=== PATIENT | male | born 1945 | race Caucasian/White ===

== ENCOUNTER 2016-08-09 07:18 | Observation (INO) | payer OTHER ==
[~2016-08-09] VITALS: Ht 171.4 cm; Wt 86.2 kg
--- NOTE | 2016-08-09 07:27 | NUR ---
PT BIBA FOR ABD PAIN. PT REPORTING HE WOKE UP THIS MORNING WITH R TO L RADIATING ABD PAIN, DENIES NAUSEA, VOMITING, CHEST PAIN, SOB. ABD ONLY TENDE TO DEEP PALPATION ON R SIDE, NON RADIATING WITH PALPATION. DENIES ANY URINARY OR BOWEL S/S.
--- NOTE | 2016-08-09 07:29 | NUR ---
PT REPORTING HE TOOK NO HOME MEDS TODAY
--- NOTE | 2016-08-09 07:34 | ED GI/GU/ABDOMINAL COMPLAINT ---
History of Present Illness General Chief Complaint: Abdominal Pain/Flank Pain Stated Complaint: BIBA, ABD PAIN Source: patient, family, old records, EMS Exam Limitations: no limitations Vital Signs & Intake/Output Vital Signs & Intake/Output Vital Signs Date Time Temp Pulse Resp B/P B/P Pulse O2 O2 Flow FiO2 Mean Ox Delivery Rate 08/09 1822 99.2 63 22 125/60 99 Nasal 2.0L Cannula 08/09 1742 99.2 74 118/69 08/09 1716 100.2 08/09 1642 102.1 08/09 1621 101.5 88 20 105/55 98 Nasal 2.0L Cannula 08/09 1549 102.7 90 20 103/57 96 Nasal 2.0L Cannula 08/09 1509 4.0 08/09 1509 102.5 88 18 120/65 100 Room Air 08/09 1321 99.8 70 20 151/72 96 Room Air 08/09 1032 98.0 68 20 165/83 94 Room Air 08/09 1003 97.0 70 159/71 08/09 0922 98.0 68 18 186/63 100 08/09 0825 99.0 64 176/78 08/09 0756 98.2 55 18 172/74 100 Room Air 08/09 0727 99 Room Air Allergies Coded Allergies: NO KNOWN ALLERGIES (08/09/16) Reconcile Medications Amoxicillin/Potassium Clav (Augmentin 875-125 Tablet) 875 MG-125 MG TABLET 1 TAB PO BID acute cholecystitis take with food Aspirin (Ecotrin*) 81 MG TABLET.DR 1 TAB PO DAILY antiplatelet (Reported) Atorvastatin Calcium (Lipitor) 80 MG TABLET 1 TAB PO DAILY hyperlipidemia ( Reported) Dexlansoprazole (Dexilant) 60 MG CAP.DR.BP 1 CAP PO DAILY GERD (Reported) Docusate Sodium (Colace) 100 MG CAPSULE 1 CAP PO BID PRN CONSTIPATION stool softener available over the counter Ezetimibe (Zetia) 10 MG TABLET 1 TAB PO DAILY hyperlipidemia (Reported) Levothyroxine Sodium (Synthroid) 50 MCG TABLET 1 TAB PO DAILY hypothyroidism (Reported) Olmesartan Medoxomil (Benicar) 20 MG TABLET 1 TAB PO DAILY GERD (Reported) Oxycodone HCl/Acetaminophen (Percocet 5-325 MG Tablet) 5 MG-325 MG TABLET 1-2 TAB PO Q4-6 PRN PRN pain control Triage Nurses Notes Reviewed? yes Onset: Abrupt Duration: hour(s): (FEW) Timing: multiple episodes today Severity Numbers: 10 Location: epigastric, left upper quadrant, right upper quadrant Radiation: no radiation Activities at Onset: sleep Associated Symptoms: abdominal pain, NAUSEA HPI: This is a 71-year-old male history of hypertension, coronary disease, acid reflux who presents by EMS with a chief complaint of sudden onset of crampy abdominal pain which woke him up from sleep. Patient states the pain goes from the right side of his abdomen to the left. Positive associated nausea but no vomiting. No difficulty with bowel or bladder. He went to add feeling fine last night. Yesterday he had hotdogs for dinner. Patient states the pain is the [place]. He is unable to rate it. No radiation of the pain to the back. She states this is dissimilar to his previous GERD. Admits to couple of alcoholic beverages last night no history of hepatitis gallbladder disease. History of colonoscopies by Dr. Neville Richmond which were normal according to the patient. Past History Travel History Traveled to [place] past 21 day No Medical History Any Pertinent Medical History? see below for history Cardiovascular: hypertension, hyperlipidemia, mitral regurgitation Gastrointestinal: GERD Surgical History Surgical History: CARDIAC STENT, CORRECTIVE SURGERY Psychosocial History What is your primary language [place] ETOH Use: occasional use Family History Hx Contributory? No Review of Systems Review of Systems Constitutional: Reports: diaphoresis. Denies: chills, fever. EENTM: Reports: no symptoms. Respiratory: Denies: cough, short of breath. Cardiovascular: Denies: chest pain, palpitations. GI: Reports: abdominal pain, nausea. Denies: diarrhea, vomiting. Genitourinary: Denies: discharge, dysuria. Musculoskeletal: Reports: no symptoms. Skin: Reports: no symptoms. Neurological/Psychological: Reports: no symptoms. Hematologic/Endocrine: Denies: bruising, bleeding, polyuria, polydipsia. Immunologic/Allergic: Denies: splenectomy. All Other Systems: Reviewed and Negative Physical Exam Physical Exam General Appearance: well developed/nourished, alert, awake, anxious, mild distress Head: atraumatic, normal appearance Eyes: Bilateral: normal appearance, PERRL, EOMI. Ears, Nose, Throat, Mouth: hearing grossly normal, moist mucous membrane Neck: normal inspection, supple, full range of motion Respiratory: normal breath sounds, chest non-tender, no respiratory distress Cardiovascular: regular rate/rhythm Peripheral Pulses: 2+ radial (R), 2+ radial (L) Gastrointestinal: normal bowel sounds, soft, tenderness (EPIGASTRIC, RUQ) Back: normal inspection, normal range of motion Extremities: normal range of motion Neurologic/Psych: no motor/sensory deficits, awake, alert, oriented x 3 Core Measures ACS in differential dx? No Severe Sepsis Present: No Septic Shock Present: No Progress Differential Diagnosis: AAA, AMI, biliary colic, cholecystitis, diverticulitis, gastritis, hepatitis, pancreatitis, PUD/GERD, perforated viscous, SBO Plan of Care: Orders Procedure Date/time Status Clear Liquid Diet 08/10 B Active CBC WITHOUT DIFFERENTIAL 08/10 06 Active BASIC ELECTROLYTES PLUS BUN&CR 08/10 0600 Active Nothing by Mouth 08/09 D Complete Patient Data 08/09 2047 Active Code Status 08/09 204 Active PATHOLOGY SPECIMEN 08/09 1917 Active Intake & Output 08/09 0756 Active URINALYSIS 08/09 0732 Complete TROPONIN LEVEL 08/09 0732 Complete PARTIAL THROMBOPLASTIN TIME 08/09 0732 Complete PROTHROMBIN TIME 08/09 0732 Complete LIPASE 08/09 0732 Complete LACTIC ACID 08/09 0732 Complete COMPREHENSIVE METABOLIC PANEL 08/09 0732 Complete CBC WITHOUT DIFFERENTIAL 08/09 0732 Complete EKG 08/[address] in observation 08/09 UNK Active VTE Mechanical Prophylaxis 08/09 UNK Active Vital Signs 08/09 UNK Active Intake & Output 08/09 UNK Active Current Medications Sig/Millicent Start time Last Medication Dose Stop Time Status Admin Atorvastatin Calcium 80 MG 1700 08/10 1700 AC (Lipitor) Aspirin Buffered 81 MG DAILY 08/10 1000 AC (Ecotrin) Ezetimibe 10 MG DAILY 08/10 1000 AC (Zetia) Losartan Potassium 50 MG DAILY 08/10 1000 AC (Cozaar) Levothyroxine Sodium 0.05 MG DAILY AC 08/10 0700 AC (Synthroid) Ampicillin Sodium/ 3,000 MG Q6H 08/10 0100 r Sulbactam Sodium (Unasyn) Sodium Chloride 100 ML (Normal Saline 0.9%) Famotidine 20 MG BID 08/09 2200 AC (Pepcid) Heparin Sodium 5,000 UNIT Q8 08/09 2200 AC (Porcine) Acetaminophen 1,000 MG Q6H 08/09 2099 AC (Ofirmev) 08/10 1514 N/A 1 UNIT (No Carrier) Ketorolac 15 MG Q6-PRN PRN 08/09 2099 AC Tromethamine (Toradol) Morphine Sulfate 2 MG Q2-3 HRS NEEDED.. 08/09 2099 AC (Morphine) Oxycodone HCl 5 MG Q4-6 PRN PRN 08/09 2099 AC (Roxicodone) Oxycodone HCl 10 MG Q4-6 PRN PRN 08/09 2099 AC (Roxicodone) Potassium Chloride 20 MEQ Q8H 08/09 2099 AC (KCl 20MEQ in D5W NS 1000ML) Dextrose/Sodium 1,000 ML Chloride (D5-Normal Saline) Laboratory Tests 08/09/16 1101: Urine Color YEL, Urine Clarity CLEAR, Urine pH 6.5, Ur Specific [place] 1.010, Urine Protein TRACE H, Urine Ketones NEG, Urine Nitrite NEG, Urine Bilirubin NEG, Urine Urobilinogen 1.0, Ur Leukocyte Esterase NEG, Ur Microscopic SEDIMENT EXAMINED, Urine RBC FEW H, Urine WBC 1-3 H, Ur Epithelial Cells RARE, Urine Bacteria RARE H, Urine Mucus RARE, Urine Hemoglobin TRACE-INTACT H, Urine Glucose NEG 08/09/16 1032: Lactic Acid Cancelled 08/09/16 0750: Anion Gap 10, Estimated GFR > 60, BUN/Creatinine Ratio 17.8, Glucose 123 H, Lactic Acid 1.6, Calcium 9.3, Total Bilirubin 0.8, AST 18, ALT 32, Alkaline Phosphatase 80, Troponin I < 0.01, Total Protein 6.3, Albumin 4.0, Globulin 2.3, Albumin/Globulin Ratio 1.7, Lipase 97, PT 12.4, INR 1.18 H, APTT 27, CBC w Diff NO MAN DIFF REQ, RBC 4.52 L, MCV 94.4 H, MCH 32.0 H, RDW 13.9, MPV 7.3 L, Gran % 81.3 H, Lymphocytes % 11.0 L, Monocytes % 6.8, Eosinophils % 0.5, Basophils % 0.4, Absolute Granulocytes 6.6 H, Absolute Lymphocytes 0.9 L, Absolute Monocytes 0.6, Absolute Eosinophils 0, Absolute Basophils 0, PUBS MCHC 33.8 zofran, morphine, labs, ua ordered. still in pain and nauseated. dilaudid, phenergen ordered. repeat dilaudid ordered for pain. 08/09/2016 11:02:28 AM Patient still unable to give urine. He states he feels it may be medications. Patient is currently refusing straight cath. Patient and informed regarding CT scan read delay. [facility] called, reading department call. (SHAYNA CR,ROSARIO) Diagnostic Imaging: Viewed by Me: CT Scan, Ultrasound. Discussed w/RAD: CT Scan, Ultrasound. Radiology Impression: PATIENT: ALEXI SAGASTUME PRESENT AGE: 71 PATIENT ACCOUNT NO: [id number] : 46 LOCATION: [facility] ORDERING PHYSICIAN: ROSARIO CORRAL MD SERVICE DATE: 08/09/16 EXAM TYPE: US - US-LIMITED ABDOMEN EXAMINATION: US ABDOMEN LIMITED CLINICAL INFORMATION: Right upper quadrant pain and nausea.. COMPARISON: Previous CT from of the abdomen and pelvis from earlier the same day TECHNIQUE: Real-time imaging of the right upper quadrant abdominal viscera. FINDINGS: PANCREAS: Not well visualized due to bowel gas LIVER: Normal. The liver demonstrates normal size, contour and echogenicity. No focal lesion or intrahepatic biliary duct dilatation. GALLBLADDER: There are gallstones in the gallbladder. The gallbladder wall is thickened. The gallbladder wall measures 0.5 cm. There is trace pericholecystic fluid. The technologist reports the patient is tender over the gallbladder. Ultrasound appearance is suggestive of acute cholecystitis. COMMON BILE DUCT: Normal in caliber measuring 0.6 cm in diameter. RIGHT KIDNEY: Normal. No hydronephrosis. No renal calculi or focal parenchymal lesions. The kidney measures 10.5 cm in maximum dimension. IMPRESSION: Gallstones, thickened gallbladder wall and trace pericholecystic fluid. Ultrasound appearance is suggestive of acute cholecystitis. DICTATED BY: RICHARD MANCERA MD DATE/TIME DICTATED:08/09/161206 DEPARTMENT STORE GENERAL MANAGER:CRISTEL DATE/TIME TRANSCRIBED:1206 CONFIDENTIAL, DO NOT COPY WITHOUT APPROPRIATE AUTHORIZATION. < Electronically signed in Other Vendor System> SIGNED BY: RICHARD MANCERA MD 08/09/16 1213, PATIENT: ALEXI SAGASTUME PRESENT AGE: 71 PATIENT ACCOUNT NO: [id number] : 46 LOCATION: [facility] ORDERING PHYSICIAN: ROSARIO CORRAL MD SERVICE DATE: 08/09/16 EXAM TYPE: CAT - CT ABD & PELVIS W IV CONTRAST EXAMINATION: CT ABDOMEN AND PELVIS WITH CONTRAST CLINICAL INFORMATION: Right-sided abdominal pain. COMPARISON: None TECHNIQUE: Multidetector volumetric imaging was performed of the abdomen and pelvis before and after the IV administration of 95 mL of Optiray 320 intravenous contrast. Sagittal and coronal reformatted images were obtained on the technologist's workstation. DLP: 407.66 mGy-cm FINDINGS: LUNG BASES: The visualized lung bases are unremarkable. LIVER, GALLBLADDER, AND BILIARY TREE: The liver is normal in size, shape, and attenuation. No focal hepatic lesion or biliary ductal dilatation is present. There is increased attenuation seen dependently in the gallbladder probably representing gallstones. PANCREAS: Unremarkable. SPLEEN: Unremarkable. ADRENAL GLANDS: Unremarkable. KIDNEYS AND URETERS: The kidneys are normal in size, shape, and attenuation. No hydronephrosis, hydroureter, or calculi seen. No perinephric stranding. BLADDER: Unremarkable. GASTROINTESTINAL TRACT: There is a hiatal hernia. There is evidence of diverticulosis. No evidence of diverticulitis is seen. Small and large bowel are otherwise normal. The appendix is normal. ABDOMINAL WALL: There is a small umbilical hernia containing fat. LYMPH NODES: There are no enlarged lymph nodes. There is no ascites. VASCULAR: There is evidence of atherosclerotic disease. No aneurysm is seen. PELVIC VISCERA: The prostate gland is slightly enlarged measuring 4 x 5 cm. OSSEOUS STRUCTURES: There are degenerative changes of the spine. IMPRESSION: Diverticulosis. No evidence of diverticulitis. Probable gallstones. Hiatal hernia. Slightly enlarged prostate gland. DICTATED BY: RICHARD MANCERA MD DATE/ TIME DICTATED:08/09/16941 DEPARTMENT STORE GENERAL MANAGER:CRISTEL DATE/TIME TRANSCRIBED: 08/09/16941 CONFIDENTIAL, DO NOT COPY WITHOUT APPROPRIATE AUTHORIZATION. < Electronically signed in Other Vendor System> SIGNED BY: RICHARD MANCERA MD 08/09/16 1109 Initial ED EKG: NSR, nonspecific ST T wave chg Departure Departure Time of Disposition: 1819 Disposition: STILL A PATIENT Condition: Stable Clinical Impression Primary Impression: Acute cholecystitis Referrals: BERTHA MORALESA (PCP/Family) Departure Forms: Customer Survey General Discharge Information Prescriptions: Current Visit Scripts Oxycodone HCl/Acetaminophen (Percocet 5-325 MG Tablet) 1-2 TAB PO Q4-6 PRN PRN pain control #36 TAB Amoxicillin/Potassium Clav (Augmentin 875-125 Tablet) 1 TAB PO BID #14 TAB take with food Docusate Sodium (Colace) 1 CAP PO BID PRN CONSTIPATION 10 Days stool softener available over the counter OR/GI Note Spoke With: JT CR,HAMILTON Brooks. ED Treatment Decision: ALEXI SAGASTUME requires urgent operative management or an emergent procedure that cannot be performed in the Emergency Room setting. Transport To: [facility] Critical Care Note Critical Care Note Critical Care Time: 30-74 min
[2016-08-09 08:10] LABS: ABSOLUTE BASOPHIL COUNT 0 /CUMM (0.0-0.2); ABSOLUTE EOSINOPHIL COUNT 0 /CUMM (0.0-0.7); ABSOLUTE LYMPH COUNT 0.9 /CUMM (1.2-3.4); ABSOLUTE MONOCYTE COUNT 0.6 /CUMM (0.10-0.60)
--- NOTE | 2016-08-09 08:10 | NUR ---
PT MEDICATED PER EMAR, INFORMED OF POC.
--- NOTE | 2016-08-09 08:25 | NUR ---
PT REPORTING NO IMPROVEMENT WITH MORPHINE OR ZOFRAN, MEDICATED WITH DILAUDID AND PHENERGAN, WILL RE ASSESS FOR PAIN CONTROL
[2016-08-09 08:28] LABS: ABSOLUTE GRANULOCYTE CT 6.6 /CUMM (1.4-6.5); BASOPHIL % 0.4 % (0.0-2.0); EOSINOPHIL % 0.5 % (0-5); GRANULOCYTE % 81.3 % (42.2-75.2); HEMATOCRIT 42.7 % (42-52); MEAN CORPUSCULAR HGB CONC 33.8 G/DL (33.0-37.0); MEAN CORPUSCULAR VOLUME 94.4 FL (80.0-94.0); MEAN PLATELET VOLUME 7.3 FL (7.4-10.4); PLATELET COUNT 224 /CUMM (130-400); RBC DISTRIBUTION WIDTH 13.9 % (11.5-14.5); RED BLOOD CELL CT 4.52 /CUMM (4.70-6.10); WHITE BLOOD CELL COUNT 8.2 /CUMM (4.8-10.8)
[2016-08-09 08:41] LABS: PT 12.4 SEC (9.4-12.5); PTT 27 SEC (25-37)
--- NOTE | 2016-08-09 09:33 | NUR ---
PT REQUESTING MORE DILAUDID, MEDICATED PER EMAR, PT TO CT SCAN AT THIS TIME.
--- NOTE | 2016-08-09 10:02 | NUR ---
PT NOTED TO BE SLEEPING QUIETLY, EASILY AROUSABLE, AT BEDSIDE, NOTED TO BE WRITING DOWN ALL INTERACTIONS WITH STAFF ON IPHONE. EDUCATED ON MEDICATIONS AND INDICATIONS FOR WHY THEY ARE BEING GIVEN.
--- NOTE | 2016-08-09 10:04 | NUR ---
PT REMINDED AGAIN OF THE NEED FOR A URINE SAMPLE
--- NOTE | 2016-08-09 10:43 | NUR ---
PT NOTED TO AGAIN BE SLEEPING QUIETLY, ENCOURAGED TO GIVE URINE SAMPLE, STATING SHE WILL ASSIST . PT REMINDED NOT TO STAND DUE TO LARGE AMOUNT OF NARCOTICS ADMINISTERED. PT AND EXPRESS UNDERSTANDING
--- NOTE | 2016-08-09 11:03 | NUR ---
URINE TRIO SENT
--- NOTE | 2016-08-09 11:09 | CT SCAN REPORT ---
EXAMINATION: CT ABDOMEN AND PELVIS WITH CONTRAST CLINICAL INFORMATION: Right-sided abdominal pain. COMPARISON: None TECHNIQUE: Multidetector volumetric imaging was performed of the abdomen and pelvis before and after the IV administration of 95 mL of Optiray 320 intravenous contrast. Sagittal and coronal reformatted images were obtained on the technologist's workstation. DLP: 407.66 mGy-cm FINDINGS: LUNG BASES: The visualized lung bases are unremarkable. LIVER, GALLBLADDER, AND BILIARY TREE: The liver is normal in size, shape, and attenuation. No focal hepatic lesion or biliary ductal dilatation is present. There is increased attenuation seen dependently in the gallbladder probably representing gallstones. PANCREAS: Unremarkable. SPLEEN: Unremarkable. ADRENAL GLANDS: Unremarkable. KIDNEYS AND URETERS: The kidneys are normal in size, shape, and attenuation. No hydronephrosis, hydroureter, or calculi seen. No perinephric stranding. BLADDER: Unremarkable. GASTROINTESTINAL TRACT: There is a hiatal hernia. There is evidence of diverticulosis. No evidence of diverticulitis is seen. Small and large bowel are otherwise normal. The appendix is normal. ABDOMINAL WALL: There is a small umbilical hernia containing fat. LYMPH NODES: There are no enlarged lymph nodes. There is no ascites. VASCULAR: There is evidence of atherosclerotic disease. No aneurysm is seen. PELVIC VISCERA: The prostate gland is slightly enlarged measuring 4 x 5 cm. OSSEOUS STRUCTURES: There are degenerative changes of the spine. IMPRESSION: Diverticulosis. No evidence of diverticulitis. Probable gallstones. Hiatal hernia. Slightly enlarged prostate gland.
--- NOTE | 2016-08-09 12:13 | ULTRASOUND REPORT ---
EXAMINATION: US ABDOMEN LIMITED CLINICAL INFORMATION: Right upper quadrant pain and nausea.. COMPARISON: Previous CT from of the abdomen and pelvis from earlier the same day TECHNIQUE: Real-time imaging of the right upper quadrant abdominal viscera. FINDINGS: PANCREAS: Not well visualized due to bowel gas LIVER: Normal. The liver demonstrates normal size, contour and echogenicity. No focal lesion or intrahepatic biliary duct dilatation. GALLBLADDER: There are gallstones in the gallbladder. The gallbladder wall is thickened. The gallbladder wall measures 0.5 cm. There is trace pericholecystic fluid. The technologist reports the patient is tender over the gallbladder. Ultrasound appearance is suggestive of acute cholecystitis. COMMON BILE DUCT: Normal in caliber measuring 0.6 cm in diameter. RIGHT KIDNEY: Normal. No hydronephrosis. No renal calculi or focal parenchymal lesions. The kidney measures 10.5 cm in maximum dimension. IMPRESSION: Gallstones, thickened gallbladder wall and trace pericholecystic fluid. Ultrasound appearance is suggestive of acute cholecystitis.
--- NOTE | 2016-08-09 13:22 | NUR ---
PH IV REMOVED, NEW LINE STARTED IN RAC, MEDICATED WITH UNASYN PER EMAR, PT STATING HE DOES NOT NEED ADDTL PAIN MEDS RIGHT NOW, AWAITING SURGICAL PA
--- NOTE | 2016-08-09 14:16 | History & Physical Pre-Op ---
General Information and HPI MD Statement: I have seen and personally examined ALEXI SAGASTUME and documented this H&P. The patient is a 71 year old M who presented with a patient stated chief complaint of [abdominal pain]. History of Present Illness: This 71 year old white male with history of hypothyroidism, GERD, hyperlipidemia , cad s/p cardiac stent (2004), presents with acute abdominal pain that woke him from sleep at 2 am. He denies any prior episodes of abdominal pain like this. He reports his pain has been constant, improved with pain medication given in the ED. He denies nausea and vomiting. No fevers, chills, or sweats. 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 Home Who Do You Live With? spouse Smoking Status: Former Smoker ETOH Use: occasional use Illicit Drug Use: denies illicit drug use Employment History Employment: Employed Review of Systems Review of Systems: admits: abdominal pain denies: nausea/vomiting, shortness of breath, chest pains, dysuria Exam & Diagnostic Data Last 24 Hrs of Vital Signs/I&O Vital Signs Date Time Temp Pulse Resp B/P B/P Pulse O2 O2 Flow FiO2 Mean Ox Delivery Rate 08/09 1321 97.8 70 20 151/72 96 Room Air 08/09 1032 98.0 68 20 165/83 94 Room Air 08/09 1003 97.0 70 159/71 08/09 0922 98.0 68 18 186/63 100 08/09 0825 99.0 64 176/78 08/09 0756 98.2 55 18 172/74 100 Room Air 08/09 0727 99 Room Air Intake & Output 08/09 1600 08/09 0800 08/09 0000 Intake Total 1000 Output Total Balance 1000 Intake, IV 1000 Patient 190 lb Weight Weight Reported by Patient Measurement Method Physical Exam: General - alert & oriented x 3. uncomfortable. no acute distress. Skin - warm, dry, and smooth. no rashes noted. Lungs - clear bilaterally. no w/r/r. Cardiac - s1s2. reg. Abdomen - soft. +campos's sign. right upper quadrant tenderness. Extremities - warm bilaterally. no c/c/e. calves soft and nontender b/l. pulses equal throughout. Neuro - speech smooth and coordinated. no focal deficits. Last 24 Hrs of Labs/Inocencio: Laboratory Tests 08/09/16 1101: Urine Color YEL, Urine Clarity CLEAR, Urine pH 6.5, Ur Specific [place] 1.010, Urine Protein TRACE H, Urine Ketones NEG, Urine Nitrite NEG, Urine Bilirubin NEG, Urine Urobilinogen 1.0, Ur Leukocyte Esterase NEG, Ur Microscopic SEDIMENT EXAMINED, Urine RBC FEW H, Urine WBC 1-3 H, Ur Epithelial Cells RARE, Urine Bacteria RARE H, Urine Mucus RARE, Urine Hemoglobin TRACE-INTACT H, Urine Glucose NEG 08/09/16 1032: Lactic Acid Cancelled 08/09/16 0750: Anion Gap 10, Estimated GFR > 60, BUN/Creatinine Ratio 17.8, Glucose 123 H, Lactic Acid 1.6, Calcium 9.3, Total Bilirubin 0.8, AST 18, ALT 32, Alkaline Phosphatase 80, Troponin I < 0.01, Total Protein 6.3, Albumin 4.0, Globulin 2.3, Albumin/Globulin Ratio 1.7, Lipase 97, PT 12.4, INR 1.18 H, APTT 27, CBC w Diff NO MAN DIFF REQ, RBC 4.52 L, MCV 94.4 H, MCH 32.0 H, RDW 13.9, MPV 7.3 L, Gran % 81.3 H, Lymphocytes % 11.0 L, Monocytes % 6.8, Eosinophils % 0.5, Basophils % 0.4, Absolute Granulocytes 6.6 H, Absolute Lymphocytes 0.9 L, Absolute Monocytes 0.6, Absolute Eosinophils 0, Absolute Basophils 0, PUBS MCHC 33.8 Diagnostic Data Other Results EXAMINATION: CT ABDOMEN AND PELVIS WITH CONTRAST CLINICAL INFORMATION: Right-sided abdominal pain. COMPARISON: None TECHNIQUE: Multidetector volumetric imaging was performed of the abdomen and pelvis before and after the IV administration of 95 mL of Optiray 320 intravenous contrast. Sagittal and coronal reformatted images were obtained on the technologist's workstation. DLP: 407.66 mGy-cm FINDINGS: LUNG BASES: The visualized lung bases are unremarkable. LIVER, GALLBLADDER, AND BILIARY TREE: The liver is normal in size, shape, and attenuation. No focal hepatic lesion or biliary ductal dilatation is present. There is increased attenuation seen dependently in the gallbladder probably representing gallstones. PANCREAS: Unremarkable. SPLEEN: Unremarkable. ADRENAL GLANDS: Unremarkable. KIDNEYS AND URETERS: The kidneys are normal in size, shape, and attenuation. No hydronephrosis, hydroureter, or calculi seen. No perinephric stranding. BLADDER: Unremarkable. GASTROINTESTINAL TRACT: There is a hiatal hernia. There is evidence of diverticulosis. No evidence of diverticulitis is seen. Small and large bowel are otherwise normal. The appendix is normal. ABDOMINAL WALL: There is a small umbilical hernia containing fat. LYMPH NODES: There are no enlarged lymph nodes. There is no ascites. VASCULAR: There is evidence of atherosclerotic disease. No aneurysm is seen. PELVIC VISCERA: The prostate gland is slightly enlarged measuring 4 x 5 cm. OSSEOUS STRUCTURES: There are degenerative changes of the spine. IMPRESSION: Diverticulosis. No evidence of diverticulitis. Probable gallstones. Hiatal hernia. Slightly enlarged prostate gland. DICTATED BY: FIORDALIZA CR,RICHARD Ward DATE/TIME DICTATED:08/09/16941 PEDIATRIC CLINICAL DIETICIAN:CRISTEL DATE/TIME TRANSCRIBED:08/09/16941 EXAM TYPE: US - US-LIMITED ABDOMEN EXAMINATION: US ABDOMEN LIMITED CLINICAL INFORMATION: Right upper quadrant pain and nausea.. COMPARISON: Previous CT from of the abdomen and pelvis from earlier the same day TECHNIQUE: Real-time imaging of the right upper quadrant abdominal viscera. FINDINGS: PANCREAS: Not well visualized due to bowel gas LIVER: Normal. The liver demonstrates normal size, contour and echogenicity. No focal lesion or intrahepatic biliary duct dilatation. GALLBLADDER: There are gallstones in the gallbladder. The gallbladder wall is thickened. The gallbladder wall measures 0.5 cm. There is trace pericholecystic fluid. The technologist reports the patient is tender over the gallbladder. Ultrasound appearance is suggestive of acute cholecystitis. COMMON BILE DUCT: Normal in caliber measuring 0.6 cm in diameter. RIGHT KIDNEY: Normal. No hydronephrosis. No renal calculi or focal parenchymal lesions. The kidney measures 10.5 cm in maximum dimension. IMPRESSION: Gallstones, thickened gallbladder wall and trace pericholecystic fluid. Ultrasound appearance is suggestive of acute cholecystitis. DICTATED BY: FIORDALIZA CR,RICHARD Ward DATE/TIME DICTATED:08/09/161206 PEDIATRIC CLINICAL DIETICIAN:CRISTEL DATE/TIME TRANSCRIBED:08/09/161206 Assessment/Plan Assessment/Plan: This 71 year old white male with history of hypothyroidism, GERD, hyperlipidemia , cad s/p cardiac stent (2004), presents with acute calculous cholecystitis currently npo / ivf iv unasyn given in the ED @ 1300 pain improved with dilaudid home meds will be re-ordered post-operatively consented for laparoscopic vs open cholecystectomy to see shortly As Ranked By This Provider Problem List: 1. Acute cholecystitis Copies To: SANJANA OSORIO,BERTHA PATEL
[2016-08-09] MEDS ORDERED: BENICAR20 M1 PO (14:24)
[2016-08-09] MEDS ORDERED: SYNTHROID50 MCG PO (14:24)
[2016-08-09] MEDS ORDERED: DEXILANT60 M1 PO (14:24)
[2016-08-09] MEDS ORDERED: LIPITOR80 M1 PO (14:24)
[2016-08-09] MEDS ORDERED: ASPIRIN EC81 M1 PO (14:25)
[2016-08-09] MEDS ORDERED: ZETIA10 M1 PO (14:25)
--- NOTE | 2016-08-09 14:25 | History & Physical Pre-Op ---
General Information and HPI History of Present Illness: CC: abdominal pain HPI: 71-year-old nondiabetic ex-smoker with a remote history of a coronary stent who was feeling in his usual state of good health until early this morning 2 AM after dinner consisting of an unusual combination for him, hotdog and also 2 small ice creams. He has constant right upper quadrant radiating around to the right upper back pain did not change with movement no associated nausea vomiting fever, though is having some chills right now, no prior episodes particular darkening of urine (ie iced tea) or lightening / loose stools (angel), no FHx of gallbladder problems. Otherwise no changes bowel habits, weight or appetite. I' ve reviewed the [facility]. No history of GERD, PUD, bleeding problems, heart disease or issues with anesthesia. He's been told he has a ventral hernia. Allergies/Medications Allergies: Coded Allergies: NO KNOWN ALLERGIES (08/09/16) Home Med list Aspirin (Ecotrin*) 81 MG TABLET.DR 1 TAB PO DAILY antiplatelet (Reported) Atorvastatin Calcium (Lipitor) 80 MG TABLET 1 TAB PO DAILY hyperlipidemia ( Reported) Dexlansoprazole (Dexilant) 60 MG CAP..BP 1 CAP PO DAILY GERD (Reported) Ezetimibe (Zetia) 10 MG TABLET 1 TAB PO DAILY hyperlipidemia (Reported) Levothyroxine Sodium (Synthroid) 50 MCG TABLET 1 TAB PO DAILY hypothyroidism (Reported) Olmesartan Medoxomil (Benicar) 20 MG TABLET 1 TAB PO DAILY GERD (Reported) Past History Medical History Neurological: NONE EENT: NONE Cardiovascular: hypertension, hyperlipidemia, mitral regurgitation Respiratory: NONE Gastrointestinal: GERD Hepatic: NONE Renal: NONE Musculoskeletal: NONE Psychiatric: NONE Endocrine: HYPOTHYROID Blood Disorders: NONE 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 Home Who Do You Live With? spouse Smoking Status: Former Smoker ETOH Use: occasional use Illicit Drug Use: denies illicit drug use Employment History Employment: Employed Review of Systems Review of Systems: Constitutional: No fever, sweats or weight loss ENMT: No sore throat Cardiovascular: No chest pain, palpitations or leg swelling Respiratory: No shortness of breath, cough, or sputum or dyspnea on exertion GI: No GERD or bleeding per rectum : No dysuria or hematuria Musculoskeletal: No new muscle weakness, bone or joint pain Skin / Breast: No jaundice, rashes or itching Psychiatric: No history of drug or alcohol abuse no depression or anxiety Hematologic / lymphatic system: No problems with excessive bleeding, bruising, or blood clots Exam & Diagnostic Data Last 24 Hrs of Vital Signs/I&O I reviewed Vital Signs Date Time Temp Pulse Resp B/P B/P Pulse O2 O2 Flow FiO2 Mean Ox Delivery Rate 08/09 1321 97.8 70 20 151/72 96 Room Air 08/09 1032 98.0 68 20 165/83 94 Room Air 08/09 1003 97.0 70 159/71 08/09 0922 98.0 68 18 186/63 100 08/09 0825 99.0 64 176/78 08/09 0756 98.2 55 18 172/74 100 Room Air 08/09 0727 99 Room Air I revieweddc Intake & Output 08/09 1600 08/09 0800 08/09 0000 Intake Total 1000 Output Total Balance 1000 Intake, IV 1000 Patient 190 lb Weight Weight Reported by Patient Measurement Method Physical Exam: Constitutional: pleasant, no acute distress, conversant Eyes: sclera anicteric ENMT: ears and nose atraumatic, moist mucous membranes, good dentition, no lip lesions Neck: Supple, trachea is midline, no cervical or supraclavicular adenopathy and no palpable thyromegaly Cardiovascular: S1, S2, no murmurs, no peripheral edema Respiratory: clear to auscultation with normal respiratory effort and no intercostal retractions GI: abdomen soft, right upper quadrant mid subxiphoid tenderness with voluntary guarding, nondistended, no palpable hepatosplenomegaly Extremities / lymphatics: symmetrically warm, free range of motion no peripheral edema, no cervical, supraclavicular, axillary, or inguinal adenopathy Musculoskeletal: Did not evaluate gait and station, no digital cyanosis, good muscle strength and tone no atrophy, motor grossly 5 out of 5 throughout Skin: no jaundice, no rashes warm, nondiaphoretic, no areas of erythema or induration Psychiatric: mood and affect are appropriate and alert and oriented to person place and time Last 24 Hrs of Labs/Inocencio: I reviewed Laboratory Tests 08/09/16 1101: Urine Color YEL, Urine Clarity CLEAR, Urine pH 6.5, Ur Specific [place] 1.010, Urine Protein TRACE H, Urine Ketones NEG, Urine Nitrite NEG, Urine Bilirubin NEG, Urine Urobilinogen 1.0, Ur Leukocyte Esterase NEG, Ur Microscopic SEDIMENT EXAMINED, Urine RBC FEW H, Urine WBC 1-3 H, Ur Epithelial Cells RARE, Urine Bacteria RARE H, Urine Mucus RARE, Urine Hemoglobin TRACE-INTACT H, Urine Glucose NEG 08/09/16 1032: Lactic Acid Cancelled 08/09/16 0750: Anion Gap 10, Estimated GFR > 60, BUN/Creatinine Ratio 17.8, Glucose 123 H, Lactic Acid 1.6, Calcium 9.3, Total Bilirubin 0.8, AST 18, ALT 32, Alkaline Phosphatase 80, Troponin I < 0.01, Total Protein 6.3, Albumin 4.0, Globulin 2.3, Albumin/Globulin Ratio 1.7, Lipase 97, PT 12.4, INR 1.18 H, APTT 27, CBC w Diff NO MAN DIFF REQ, RBC 4.52 L, MCV 94.4 H, MCH 32.0 H, RDW 13.9, MPV 7.3 L, Gran % 81.3 H, Lymphocytes % 11.0 L, Monocytes % 6.8, Eosinophils % 0.5, Basophils % 0.4, Absolute Granulocytes 6.6 H, Absolute Lymphocytes 0.9 L, Absolute Monocytes 0.6, Absolute Eosinophils 0, Absolute Basophils 0, PUBS MCHC 33.8 Diagnostic Data Other Results EXAMINATION: CT ABDOMEN AND PELVIS WITH CONTRAST CLINICAL INFORMATION: Right-sided abdominal pain. COMPARISON: None TECHNIQUE: Multidetector volumetric imaging was performed of the abdomen and pelvis before and after the IV administration of 95 mL of Optiray 320 intravenous contrast. Sagittal and coronal reformatted images were obtained on the technologist's workstation. DLP: 407.66 mGy-cm FINDINGS: LUNG BASES: The visualized lung bases are unremarkable. LIVER, GALLBLADDER, AND BILIARY TREE: The liver is normal in size, shape, and attenuation. No focal hepatic lesion or biliary ductal dilatation is present. There is increased attenuation seen dependently in the gallbladder probably representing gallstones. PANCREAS: Unremarkable. SPLEEN: Unremarkable. ADRENAL GLANDS: Unremarkable. KIDNEYS AND URETERS: The kidneys are normal in size, shape, and attenuation. No hydronephrosis, hydroureter, or calculi seen. No perinephric stranding. BLADDER: Unremarkable. GASTROINTESTINAL TRACT: There is a hiatal hernia. There is evidence of diverticulosis. No evidence of diverticulitis is seen. Small and large bowel are otherwise normal. The appendix is normal. ABDOMINAL WALL: There is a small umbilical hernia containing fat. LYMPH NODES: There are no enlarged lymph nodes. There is no ascites. VASCULAR: There is evidence of atherosclerotic disease. No aneurysm is seen. PELVIC VISCERA: The prostate gland is slightly enlarged measuring 4 x 5 cm. OSSEOUS STRUCTURES: There are degenerative changes of the spine. IMPRESSION: Diverticulosis. No evidence of diverticulitis. Probable gallstones. Hiatal hernia. Slightly enlarged prostate gland. DICTATED BY: RICHARD MANCERA MD. DATE/TIME DICTATED:08/09/16941 SUPPLEMENTAL MANAGER:CRISTEL DATE/TIME TRANSCRIBED:08/09/16941 EXAM TYPE: US - US-LIMITED ABDOMEN EXAMINATION: US ABDOMEN LIMITED CLINICAL INFORMATION: Right upper quadrant pain and nausea.. COMPARISON: Previous CT from of the abdomen and pelvis from earlier the same day TECHNIQUE: Real-time imaging of the right upper quadrant abdominal viscera. FINDINGS: PANCREAS: Not well visualized due to bowel gas LIVER: Normal. The liver demonstrates normal size, contour and echogenicity. No focal lesion or intrahepatic biliary duct dilatation. GALLBLADDER: There are gallstones in the gallbladder. The gallbladder wall is thickened. The gallbladder wall measures 0.5 cm. There is trace pericholecystic fluid. The technologist reports the patient is tender over the gallbladder. Ultrasound appearance is suggestive of acute cholecystitis. COMMON BILE DUCT: Normal in caliber measuring 0.6 cm in diameter. RIGHT KIDNEY: Normal. No hydronephrosis. No renal calculi or focal parenchymal lesions. The kidney measures 10.5 cm in maximum dimension. IMPRESSION: Gallstones, thickened gallbladder wall and trace pericholecystic fluid. Ultrasound appearance is suggestive of acute cholecystitis. DICTATED BY: RICHARD MANCERA MD. DATE/TIME DICTATED:08/09/161206 SUPPLEMENTAL MANAGER:CRISTEL DATE/TIME TRANSCRIBED:08/09/161206 Assessment/Plan Assessment/Plan: Studies: I reviewed the CT scan and ultrasound the gallbladder on PACS myself and compared to a CT scan from 2010 the gallbladder has changed its obviously a little distended and the wall was thicker and on the ultrasound he can see pericholecystic fluid and there are gallstones and a car lights clinically. My impression is symptomatic gallstones. The story is typical. The current standard of care is removal of the gallbladder laparoscopically, preferably not emergently. Once they become symptomatic, gallstones can lead to complications such as cholecystitis, pancreatitis and cholangitis and rarely others, her story does not have hints of this and she does not have acute cholecystitis. More workup is not needed but we will get a preoperative labs including LFTs. I explained the nature and possibility of retained stones, and rarely, persistent postoperative diarrhea. I jerrod a diagram illustrating how the stones cause problems and how the anatomy and inflammation can make the surgery more difficult, sometimes requiring an open procedure, and rarely to repair a bile duct injury leading to significant morbidity and even mortality. This in our practice is exceedingly rare, but other more common risks were also discussed such as infection, injury to other surrounding structures such as bowel and blood vessels. We also discussed the potential risks, benefits and alternatives to the procedure and surgery in general, issues that included but were not limited to, anesthetic risks hemorrhage requiring transfusion, the risk of transfusion itself, infection, heart attack, stroke, . I explained the importance of history of smoking as it pertains to surgery, especially with general anesthesia and healing. As Ranked By This Provider Problem List: 1. Acute cholecystitis
--- NOTE | 2016-08-09 15:24 | NUR ---
O2 1L/NC APPLIED FOR LOW O2 SATS.
--- NOTE | 2016-08-09 16:57 | NUR ---
PATIENT'S TEMP HAS RISEN TO 102.1 DESPITE 1GM TYLENOL IV THAT WAS GIVEN. PATIENT HAS ICE PACKS PLACED TO BACK OF NECK, BILAT AXILLA, BEHIND BOTH KNEES AND IN THE GROIN. ONE LITER OF NS IS HUNG AT BOLUS RATE.
--- NOTE | 2016-08-09 17:15 | NUR ---
TEMP IS NOW DECREASED TO 100.2
--- NOTE | 2016-08-09 18:20 | NUR ---
ACCU CHEK 102 PRIOR TO LEAVING FOR THE OR
--- NOTE | 2016-08-09 20:52 | Admission Core Measures ---
Admission Lab Results I reviewed the following labs: Laboratory Tests 08/09 08/09 1101 1032 Chemistry Lactic Acid Cancelled Urines Urine Color (YEL,AMB,STR) YEL Urine Clarity (CLEAR) CLEAR Urine pH (5.0 - 8.0) 6.5 Ur Specific [place] (1.001 - 1.035) 1.010 Urine Protein (NEG,<30 MG/DL) TRACE H Urine Ketones (NEG) NEG Urine Nitrite (NEG) NEG Urine Bilirubin (NEG) NEG Urine Urobilinogen (0.1 - 1.0 EU/dl) 1.0 Ur Leukocyte Esterase (NEG) NEG Ur Microscopic SEDIMENT EXAMINED Urine RBC (0 - 5 /HPF) FEW H Urine WBC (0 - 2 /HPF) 1-3 H Ur Epithelial Cells (NONE,FEW) RARE Urine Bacteria (NEG/NONE) RARE H Urine Mucus (FEW,NONE) RARE Urine Hemoglobin (NEG) TRACE-INTACT H Urine Glucose (N MG/DL) NEG 08/09 0750 Chemistry Sodium (137 - 145 mmol/L) 137 Potassium (3.5 - 5.1 mmol/L) 4.0 Chloride (98 - 107 mmol/L) 101 Carbon Dioxide (22 - 30 mmol/L) 26 Anion Gap (5 - 16) 10 BUN (9 - 20 mg/dL) 16 Creatinine (0.7 - 1.2 mg/dL) 0.9 Estimated GFR (>60 ml/min) > 60 BUN/Creatinine Ratio (7 - 25 %) 17.8 Glucose (65 - 99 mg/dL) 123 H Lactic Acid (0.7 - 2.1 mmol/L) 1.6 Calcium (8.4 - 10.2 mg/dL) 9.3 Total Bilirubin (0.2 - 1.3 mg/dL) 0.8 AST (17 - 59 U/L) 18 ALT (21 - 72 U/L) 32 Alkaline Phosphatase (< 127 U/L) 80 Troponin I (<0.11 ng/ml) < 0.01 Total Protein (6.3 - 8.2 g/dL) 6.3 Albumin (3.5 - 5.0 g/dL) 4.0 Globulin (1.9 - 4.2 gm/dL) 2.3 Albumin/Globulin Ratio (1.1 - 2.2 %) 1.7 Lipase (23 - 300 U/L) 97 Coagulation PT (9.4 - 12.5 SEC) 12.4 INR (0.90 - 1.17) 1.18 H APTT (25 - 37 SEC) 27 Hematology CBC w Diff NO MAN DIFF REQ WBC (4.8 - 10.8 /CUMM) 8.2 RBC (4.70 - 6.10 /CUMM) 4.52 L Hgb (14.0 - 18.0 G/DL) 14.4 Hct (42 - 52 %) 42.7 MCV (80.0 - 94.0 FL) 94.4 H MCH (27.0 - 31.0 PG) 32.0 H RDW (11.5 - 14.5 %) 13.9 Plt Count (130 - 400 /CUMM) 224 MPV (7.4 - 10.4 FL) 7.3 L Gran % (42.2 - 75.2 %) 81.3 H Lymphocytes % (20.5 - 51.1 %) 11.0 L Monocytes % (1.7 - 9.3 %) 6.8 Eosinophils % (0 - 5 %) 0.5 Basophils % (0.0 - 2.0 %) 0.4 Absolute Granulocytes (1.4 - 6.5 /CUMM) 6.6 H Absolute Lymphocytes (1.2 - 3.4 /CUMM) 0.9 L Absolute Monocytes (0.10 - 0.60 /CUMM) 0.6 Absolute Eosinophils (0.0 - 0.7 /CUMM) 0 Absolute Basophils (0.0 - 0.2 /CUMM) 0 PUBS MCHC (33.0 - 37.0 G/DL) 33.8 Admission Meds I reviewed the following Meds: Current Medications Sig/Millicent Start time Last Medication Dose Stop Time Status Admin Acetaminophen 1,000 MG Q6H 08/09 2100 UNVr (Ofirmev) 08/10 1514 N/A 1 UNIT (No Carrier) Ampicillin Sodium/ 3,000 MG Q6H 08/10 0100 AC Sulbactam Sodium 08/10 1329 (Unasyn) Sodium Chloride 100 ML (Normal Saline 0.9%) Aspirin Buffered 81 MG DAILY 08/10 1000 UNVr (Ecotrin) Atorvastatin Calcium 80 MG 1700 08/10 1700 AC (Lipitor) Ezetimibe 10 MG DAILY 08/10 1000 UNVr (Zetia) Famotidine 20 MG BID 08/09 2199 UNVr (Pepcid) Ketorolac 15 MG Q6-PRN PRN 08/09 2099 UNVr Tromethamine (Toradol) Levothyroxine Sodium 0.05 MG DAILY AC 08/10 0700 AC (Synthroid) Losartan Potassium 50 MG DAILY 08/10 1000 AC (Cozaar) Morphine Sulfate 2 MG Q2-3 HRS NEEDED.. 08/09 2099 UNVr (Morphine) Oxycodone HCl 5 MG Q4-6 PRN PRN 08/09 2099 UNVr (Roxicodone) Oxycodone HCl 10 MG Q4-6 PRN PRN 08/09 2099 UNVr (Roxicodone) Potassium Chloride 20 MEQ Q8H 08/09 2099 UNVr (KCl 20MEQ in D5W NS 1000ML) Dextrose/Sodium 1,000 ML Chloride (D5-Normal Saline) Acute Coronary Syndrome Inclusion Criteria ACS Diagnosis No Inpatient Core Measures LDL Reminder: If No, please order W/I first 24hr of stay Congestive Heart Failure Inclusion Criteria CHF Diagnosis No Cerebrovascular accident Inclusion Criteria CVA/TIA Diagnosis No Inpatient Core Measures Bedside Swallow Eval Reminder: If BSE failed, place ST order Antithrombotic Reminder: Order Antithrombotic Medication by end of day 2 Antithrombotic Reminder: Document Reason Antithrombotic Not ordered by end of day 2 AFIB/Flutter Reminder: If Present, add to problem list AFIB/Flutter Reminder: Order Anticoag Medication for pts with AFIB/Flutter Atherosclerosis Reminder: If Present, add to problem list LDL Reminder: If No, please order W/I first 24hr of stay PT Order Reminder: If No, please order Venous thromboembolism Inpatient Core Measures VTE Risk Factors: Age > 40, Surgery No [facility] VTE prophylaxis d/t No contraindications No VTE Pharm Prophylaxis d/t No contraindications Inclusion Criteria - Per Current guidelines, there needs to be overlap - treatment for the first 5 days of Warfarin therapy. - Parenteral Anticoagulation (IV or SC) needs to be - given along with Warfarin therapy. VTE Diagnosis No VTE Type NONE VTE Confirmed by (Test) NONE Problem List As ranked by this Provider includes Assessment & Plan 1. Acute cholecystitis HOME MEDS Home Med List Aspirin (Ecotrin*) 81 MG TABLET. 1 TAB PO DAILY antiplatelet (Reported) Atorvastatin Calcium (Lipitor) 80 MG TABLET 1 TAB PO DAILY hyperlipidemia ( Reported) Dexlansoprazole (Dexilant) 60 MG CAPBP 1 CAP PO DAILY GERD (Reported) Ezetimibe (Zetia) 10 MG TABLET 1 TAB PO DAILY hyperlipidemia (Reported) Levothyroxine Sodium (Synthroid) 50 MCG TABLET 1 TAB PO DAILY hypothyroidism (Reported) Olmesartan Medoxomil (Benicar) 20 MG TABLET 1 TAB PO DAILY GERD (Reported)
[2016-08-09] MEDS ORDERED: PERCOCET 5-3251 EACH PO (21:04)
[2016-08-09] MEDS ORDERED: AUGMENTIN 875-1 EACH PO (21:04)
[2016-08-09] MEDS ORDERED: COLACE100 M1 PO (21:04)
--- NOTE | 2016-08-09 21:06 | Patient Discharge Instructions ---
Discharge Instructions General Discharge Information You were seen/treated for: acute cholecystitis You had these procedures: laparoscopic cholecystectomy (08/09/16) Watch for these problems: fever>101.3, increased pain, redness/swelling/drainage No bath, but you may shower: Yes Other wound care: ok to remove bandaids. leave white steri strips in place. keep incisions clean & dry. Special Instructions: no bathing or pools Diet Continue normal diet: No Recommended Diet: Low Fat Activity Full Activity/No Limits: No Activity Self Limited: Yes Pounds, do NOT lift more than: 10 Acute Coronary Syndrome Inclusion Criteria At DC or during hospital stay patient has or had the following: ACS DIAGNOSIS No Discharge Core Measures Meds if any: Prescribed or Continued at Discharge Meds if any: NOT Prescribed or Continued at Discharge Congestive Heart Failure Inclusion Criteria At DC or during hospital stay patient has or had the following: CHF DIAGNOSIS No Discharge Core Measures Meds if any: Prescribed or Continued at Discharge Meds if any: NOT Prescribed or Continued at Discharge Cerebrovascular accident Inclusion Criteria At DC or during hospital stay patient has or had the following: CVA/TIA Diagnosis No Discharge Core Measures Meds if any: Prescribed or Continued at Discharge Meds if any: NOT Prescribed or Continued at Discharge Venous thromboembolism Inclusion Criteria VTE Diagnosis No VTE Type NONE VTE Confirmed by (Test) NONE Discharge Core Measures - Per Current guidelines, there needs to be overlap - treatment for the first 5 days of Warfarin therapy. - If discharged on Warfarin prior to 5 days of - overlap therapy, the patient will need to be - assessed for post discharge needs including - *Post discharge parental anticoagulation - *Warfarin and/or parental anticoagulation education - *Follow up date to check INR post discharge At least 5 days overlap therapy as Inpatient No Meds if any: Prescribed or Continued at Discharge Note: Overlap Therapy is Warfarin and Anticoagulant Meds if any: NOT Prescribed or Continued at Discharge
--- NOTE | 2016-08-10 01:24 | NUR ---
LATE ENTRY FOR 08/09/16 8087 NEW ADMISSION FROM THE PACU SETTLED INTO RM 213. DROWSY BUT EASILY AROUSABLE. IVF INFUSING. BANDAIDS INTACT TO ABDOMEN. CALL [facility] IN REACH.
[2016-08-10 02:17] VITALS: BP 102/58
[2016-08-10 06:52] VITALS: BP 102/58
--- NOTE | 2016-08-10 08:03 | PN- General Surgery ---
See Addendum Subjective Subjective: The patient was seen this morning postoperatively day #1. He reports some minor incisional soreness but is otherwise feeling great. He is tolerating a diet without nausea and is eager to go home. He had no other complaints at the current time. Objective Vital Signs and I&Os Vital Signs Date Time Temp Pulse Resp B/P B/P Pulse O2 O2 Flow FiO2 Mean Ox Delivery Rate 08/10 0652 98.2 60 18 102/58 95 Room Air 08/10 0217 98.0 50 20 102/58 97 08/09 1822 99.2 63 22 125/60 99 Nasal 2.0L Cannula 08/09 1742 99.2 74 118/69 08/09 1716 100.2 08/09 1642 102.1 08/09 1621 101.5 88 20 105/55 98 Nasal 2.0L Cannula 08/09 1549 102.7 90 20 103/57 96 Nasal 2.0L Cannula 08/09 1509 4.0 08/09 1509 102.5 88 18 120/65 100 Room Air 08/09 1321 99.8 70 20 151/72 96 Room Air 08/09 1032 98.0 68 20 165/83 94 Room Air 08/09 1003 97.0 70 159/71 08/09 0922 98.0 68 18 186/63 100 08/09 0825 99.0 64 176/78 Intake & Output 08/10 1600 08/10 0800 08/10 0000 08/09 1600 08/09 0800 08/09 0000 Intake Total 7383 489 1898 Output Total 700 Balance 136 332 4137 Intake, IV 4059 003 6955 Intake, Oral 0 0 Number 0 0 Bowel Movements Output, Urine 700 Patient 190 lb 190 lb Weight Weight Reported by Patient Measurement Method Physical Exam: Gen.: Alert and in obvious distress Skin: Warm and dry without jaundice Abdomen: Soft, appropriate incisional tenderness, bowel sounds positive. Port sites are clean, dry, and intact. Extremities: Bilateral lower extremities warm without calf tenderness or significant edema. Assessment/Plan Assessment/Plan Assessment: 71-year-old male status post laparoscopic cholecystectomy postoperative day #1. The patient is progressing as expected, his pain is under adequate control, is tolerating a diet without nausea. Plan: Hep-Lock IV fluids Advance diet as tolerated GI and DVT prophylaxis Antibiotics Discharge home with by mouth antibiotics Core Measures/Miscellaneous Venous Thromboembolism VTE Risk Factors: Age > 40, Surgery VTE Contraindications: No Contraindications VTE Diagnosis: No VTE Type: NONE VTE Confirmed by (Test): NONE Beta Carrie Is Beta Carrie a Home Med? No Antibiotics Is Patient on Antibiotics? Yes If Yes: infection
[2016-08-10 08:34] LABS: ABSOLUTE BASOPHIL COUNT 0 /CUMM (0.0-0.2); ABSOLUTE EOSINOPHIL COUNT 0 /CUMM (0.0-0.7); ABSOLUTE LYMPH COUNT 0.5 /CUMM (1.2-3.4); ABSOLUTE MONOCYTE COUNT 0.6 /CUMM (0.10-0.60); EOSINOPHIL % 0 % (0-5)
[2016-08-10 09:07] LABS: ABSOLUTE GRANULOCYTE CT 8.4 /CUMM (1.4-6.5); BASOPHIL % 0.1 % (0.0-2.0); MEAN CORPUSCULAR HGB 32.5 PG (27.0-31.0); MEAN CORPUSCULAR HGB CONC 33.7 G/DL (33.0-37.0); MEAN CORPUSCULAR VOLUME 96.4 FL (80.0-94.0); MEAN PLATELET VOLUME 7.8 FL (7.4-10.4); PLATELET COUNT 174 /CUMM (130-400); RBC DISTRIBUTION WIDTH 14.1 % (11.5-14.5); WHITE BLOOD CELL COUNT 9.5 /CUMM (4.8-10.8)
[2016-08-10 09:18] LABS: HEMATOCRIT 34.7 % (42-52)
[2016-08-10 10:00] LABS: GRANULOCYTE % 88.7 % (42.2-75.2)
--- NOTE | 2016-08-11 15:23 | Operative Report ---
Operative/Inv Procedure Report Surgery Date: 08/09/16 Name of Procedure: Laparoscopic cholecystectomy Pre-Operative Diagnosis: Acute cholecystitis, fever Post-Operative Diagnosis: same Estimated Blood Loss: less than 50ml Surgeon/Dressmaking Teacher: JT CR,HAMILTON OSORIO Anesthesia: general endotracheal tube Operative/Procedure Note Note: Patient was positioned supine. After successful induction of general anesthesia, the patient's abdomen was clipped, prepped and draped in the usual sterile fashion. Local anesthetic was injected at the top of the umbilicus and then a curved horizontal incision little over a centimeter was made there with a 15 blade and then deepened to the midline fascia with there was a tiny hernia which was incised vertically a little over a centimeter. Both sides were secured with 0 Vicryl stay sutures and then the thin peritoneal layer was entered, 10 mm Bucio trocar inserted obliquely to the right, and the gas was turned on to 15 mm. After insufflation and repositioning to reverse Trendelenburg, 3 more dissecting 5 mm trochars were placed in the right subcostal area, first lateral, then mid-subcostal, then subxiphoid. The gallbladder was first decompressed with a large-bore needle, bile was purulent, then after gently sweeping off some adherent omentum the inflamed fundus was grasped from the lateral port and retracted up over the edge of the liver and then we dissected out the area of the triangle of Calot while retracting the infundibulum caudally / laterally. First the cystic duct was identified, it was thick, it was then isolated at the neck, clipped 3 times, divided after the second clip and then in similar fashion the cystic artery was identified medially, dissected and divided. Then the gallbladder was from the liver bed using cautery then lowered into an Endobag and removed through the umbilical incision. The instruments and then the trochars were removed letting the gas escape. The fascial incision was closed with a figure 8 Vicryl then all 4 skin incisions were closed with interrupted subcuticular 4-0 Monocryl, followed by Mastisol Steri-Strips and Bandaids. Estimated blood loss was minimal, lap and sponge counts were correct, wound expectancy was clean-contaminated, IV fluids crystalloid, complications none, patient tolerated the procedure well and was returned to the recovery room in satisfactory condition.
== END 2016-08-10 12:40 ==
LOC: ERH 07:18 → ER-OR 07:26 → PACUH 19:05 → CANRESERV 21:20 → ENRESERV 21:20 → ENTRNSPT 21:52 → EDTRNSPTSTS 22:09 → 2NB 22:15 → CMPTRNSPT 08-10 08:00 → ENPENDDIS 08-10 08:33 → 2NB 08-10 12:40
PROVIDERS: Emergency Medicine; Physician Assistant; ADMIT Surgery
DX: K80.00 Calculus of gallbladder with acute cholecystitis without obstruction (principal); R50.9 Fever, unspecified; I10 Essential (primary) hypertension; E78.5 Hyperlipidemia, unspecified; K21.9 Gastro-esophageal reflux disease without esophagitis; I34.0 Nonrheumatic mitral (valve) insufficiency; Z79.82 Long term (current) use of aspirin
CPT/HCPCS: 6040; 36415; 74177; 81001; 82436; 88304; 93005; 93010; 96372; 96374; 96375; 96376; G0378; J0131; J1170; J1644; J2405; J2550; J3010; J7042; S5012